=== PATIENT | female | born 2000 | race Caucasian/White ===

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

== ENCOUNTER 2022-08-28 22:22 | Emergency (ER) | payer OTHER, SELFPAY ==
[2022-08-28 22:24] VITALS: BP 155/96; PULSE 130; RESP 18; TEMP 38.8; O2SAT 98; BMI 27.3
--- NOTE | 2022-08-28 22:50 | EDS_ITS ---
HPI History of Present Illness Chief Complaint: Fever Narrative Narrative: Patient is a 22-year-old female with history of hypothyroidism and bipolar disorder. She states that over the last 2 days she has had a fever that has been slowly increasing from roughly 100.5 max temperature of 104 at home. She states that there has been chills and slight chest tightness associated with this. Otherwise she denies any nausea vomiting diarrhea or dysuria. She reports slight cough. She denies any sore throat or headache. Patient denies any known sick contacts but with the persistent fever is concern for an infectious process and therefore comes in for evaluation [facility] Medical History Anxiety Bipolar disorder Depression Hypothyroidism Home Medications lithium carbonate 600 mg capsule 1,200 mg PO DAILY 04/08/21 [History Last Taken Unknown] Allergy/AdvReac Type Severity Reaction Status Date / Time No Known Allergies Allergy Verified 08/28/22 22:26 Social History Smoking Status: Never smoker ROS ROS ED Constitutional Constitutional ED: Reports chills and fever(s) ENT ENT ED: Denies sore throat Cardiovascular Cardiovascular: Denies chest pain Respiratory/Chest Respiratory/Chest: Reports cough; Denies dyspnea Gastrointestinal Gastrointestinal: Denies abdominal pain, diarrhea, nausea or vomiting Genitourinary Genitourinary ED: Denies dysuria Musculoskeletal Musculoskeletal: Reports myalgias Integumentary Denies rash Neurologic Neurologic: Denies headache(s) Psychiatric Psychiatric: Reports depression Hematologic/Lymphatic Hematologic/Lymphatic: Denies easy bleeding or easy bruising EXAM Physical Exam Const Vital Signs: 08/28/22 22:24 Temperature 101.8 F H Temperature Source Oral Pulse Rate 130 H Respiratory Rate 18 Blood Pressure 155/96 H Blood Pressure Mean 115 Pulse Ox 98 Oxygen Delivery Method Room Air Positive well nourished and well developed General Appearance ED: well developed HEENT Reports moist mucous membranes Eyes PERRL and EOMs intact bilaterally Neck supple Neck Narrative: Positive anterior cervical of adenopathy noted Resp normal respiratory effort Resp Narrative: Faint expiratory wheeze in the bilateral lower lobes without nasal flaring retractions tachypnea or accessory muscle use Cardio regular rhythm Rate: tachycardic GI normal to inspection, nondistended, normoactive bowel sounds, non-tender, non- distended and no masses GI Narrative: No voluntary guarding or rigidity no pulsatile mass. Negative heel strike psoas and obturator signs. Auscultation: normoactive bowel sounds Palpation: soft Extremity normal to inspection Neuro oriented x3 and CN's II-XII intact bilaterally Sensorium / Orientation: alert Psych Psych Narrative: Patient has a flat affect Skin no rashes or lesions noted MDM MDM MDM Narrative Medical decision making narrative: Patient presented to the ER febrile and tachycardic consistent with a fever. Her reported temperature up to 104 at home is concerning for viral infection such as influenza or COVID so a rapid viral swab was obtained. Chest x-ray was also ordered because of mild cough and urine because of her recent diagnosis of UTI. The patient's viral swabs are. Her chest x-ray revealed no acute infiltrate. Urine showed bacteria but this would be treated as asymptomatic bacturia as patient denies any frequency urgency or dysuria. Upon reevaluation patient's temperature has improved and she also reports improvement of symptoms. On reevaluation her abdomen is also soft and nontender which is improved from the initial evaluation. Therefore at this time I feel that her symptoms are most likely related to viral upper respiratory tract infection instead of nontreated UTI or pneumonia or abdominal pathology such as colitis or diver ticulitis or appendicitis and patient can be discharged home at this time Lab Data Attestation: I reviewed the patient's lab results. Labs: Laboratory Results - last 24 hr 08/29/22 00:15 Urine Color Yellow Urine Clarity Clear Urine pH 7.0 Ur Specific [place] 1.005 Urine Protein Negative Urine Glucose (UA) Normal Urine Ketones 5 H Urine Occult Blood 25 H Urine Nitrite Negative Urine Bilirubin Negative Urine Urobilinogen Normal Ur Leukocyte Esterase Negative Urine RBC 0-5 SEEN Urine WBC 0 SEEN Ur Squamous Epith Cells 0-5 SEEN Urine Bacteria 2+ Urine Mucus 0 SEEN Urine Test Negative Radiography Diagnostic Testing: Clinical Impression(s) from Imaging Studies Chest X-Ray 08/28/22 23:10 IMPRESSION: No radiographic evidence of acute cardiopulmonary disease. Electronically Signed: Stanton العلي MD at 23:32 EST , 2 view chest x-ray as interpreted by the emergency medicine physician reveals no acute infiltrate pneumothorax or pleural effusion Discharge Plan Triage Chief Complaint: Fever ED Provider: Morteza White Dx/Rx/DC Orders Clinical Impression: Acute viral syndrome, Pyrexia Prescriptions: No Action lithium carbonate 600 mg Capsule 1,200 mg PO DAILY Primary Care Provider: Care Physician,No Primary Referrals: Maritza Raza, [Med Staff - Employee'S Representative] - Care Physician,No Primary [Primary Care Provider] - Activity Restrictions/Additional Instructions: Please continue take Tylenol to control your fever which your work-up today woul d indicate is from a viral upper respiratory tract infection. Fever from this will typically last 3 to 7 days. If you have any further concerns or worsening of symptoms please return to ER for repeat evaluation Disposition Disposition: Home, Self Care
--- NOTE | 2022-08-28 23:10 | RAD_ITS ---
INDICATION: cough EXAMINATION/TECHNIQUE: X-RAY - XR Chest 2 Views COMPARISON: None. FINDINGS: LINES/DEVICES: None. LUNGS: No pulmonary edema or focal airspace consolidation. No sizable pleural effusion. No pneumothorax detected. MEDIASTINUM AND CARDIOVASCULAR STRUCTURES: Heart size within normal limits. Mediastinal contours unremarkable. BONES AND SOFT TISSUES: No acute findings. RAD/Chest PA and Lateral IMPRESSION: No radiographic evidence of acute cardiopulmonary disease. Electronically Signed: Stanton العلي MD at 23:32 EST ,
[2022-08-29 00:22] LABS: Mucous, Urine 0 SEEN /hpf (<or=2+); White Blood Cells 0 SEEN /hpf (0-5)
[2022-08-29 00:23] VITALS: RESP 16
[2022-08-29 00:26] LABS: Color, Urine Yellow (Yellow); Glucose, Dipstick Normal (Normal); Ketone-Dipstick 5 mg/dl (Negative); Leukocyte Esterase-Dipstick Negative /ul (Negative); Nitrite-Dipstick Negative (Negative); Occult Blood-Urine 25 /ul (Negative); Protein-Dipstick Negative (Negative); Specific Gravity, Urine 1.005 (1.002-1.030); Urine Bilirubin Dipstick Negative (Negative); Urine Clarity Clear (Clear); Urine Urobilinogen Normal (Normal)
[2022-08-29 00:30] LABS: Internal QC Validated? YES +Cl - CLEAR BKGD; Pregnancy, Urine Negative Negative
[2022-08-29 00:33] LABS: Bacteria 2+ /hpf (None Seen); Red Blood Cells-Urine 0-5 SEEN /hpf (0-5); Squamous Epithelial Cells - UA 0-5 SEEN /hpf (5-10)
[2022-08-29 01:05] VITALS: BP 155/96; PULSE 128; RESP 18; O2SAT 98
== END 2022-08-29 01:30 | disposition home or self-care (01) ==
PROVIDERS: Emergency Provider Emergency Medicine; Visit Provider Emergency Medicine
DX: B34.9 Viral infection, unspecified (principal); R50.9 Fever, unspecified
CPT/HCPCS: 71046; 81001; 81025; 87086; 87088; 87428; 99282

== ENCOUNTER 2022-08-30 20:36 | Emergency (ER) | payer OTHER, SELFPAY ==
[2022-08-30 20:38] VITALS: BP 117/78; PULSE 135; RESP 18; TEMP 37.8; O2SAT 100; BMI 29.9
[2022-08-30 20:40] VITALS: BP 117/78; PULSE 135; RESP 16; TEMP 37.8; O2SAT 100
[2022-08-30] MEDS: 0.9% Normal Saline 1,000 ML 1000 ML IV (21:05)
[2022-08-30] MEDS: Ondansetron 4 MG/2 ML Vial IV (21:06)
[2022-08-30 21:14] LABS: Absolute Lymphocyte Count 0.65 X10^3/uL (0.83-4.51); Absolute Neutrophil Count 2.5 X10^3/uL (2.0-7.7); Basophil# 0.01 X10^3/uL; Basophil% 0.3 % (0-1); Eosinophil# 0.14 X10^3/uL; Hematocrit 35.9 % (37-47); Lymphocyte # 0.65 X10^3/ul (0.83-4.51); Lymphocyte % 18.7 % (19-41); Mean Corp Hgb Conc 33.4 g/dL (32-36); Mean Corpuscular Hgb 28.4 pg (27.0-32.0); Mean Corpuscular Volume 84.9 fL (81-99); Mean Platelet Vol. 10.5 fl (6.2-12.0); Monocyte# 0.19 X10^3/uL; Monocyte% 5.5 % (0-10); NRBC Flagged by Analyzer 0 % (0-5); Neutrophil # 2.47 X10^3/uL (2.7-7.7); Neutrophil % 71.2 % (47-70); Platelet Count 115 K/mm3 (150-450); RBC Distribution Width CV 12.7 % (11.6-14.6); Red Blood Count 4.23 M/mm3 (4.2-5.4); White Blood Count 3.5 K/mm3 (4.4-11.0)
--- NOTE | 2022-08-30 21:17 | EX.ED.DYSGE1 ---
HPI History of Present Illness Chief Complaint: Fever Informant: patient Onset/Context/Timing Onset: Days (4 days) Context: Gradual Onset Current Severity: Mild Maximum Severity: Moderate Narrative Narrative: Patient present secondary to continued fevers at home and new development of a rash. She was seen in the ER 2 nights ago and had a negative COVID and influenza test. Her urinalysis revealed no acute infection. Chest x-ray was clear. Is felt she likely had viral syndrome. Patient states she woke the next morning with a dry red rash to primarily the upper extremities and her face. She also developed a sore throat. She continues to have intermittent fevers up to 103-104. She states today she has had nausea and diarrhea. [facility] Medical History Anxiety Bipolar disorder Depression Hypothyroidism Home Medications lithium carbonate 600 mg capsule 1,200 mg PO DAILY 04/08/21 [History Last Taken Unknown] ondansetron 4 mg disintegrating tablet 4 mg PO Q8H PRN nausea and vomiting #10 tabs 08/30/22 [Rx Last Taken Unknown] Allergy/AdvReac Type Severity Reaction Status Date / Time No Known Allergies Allergy Verified 08/28/22 22:26 Social History Smoking Status: Never smoker ROS ROS ED Constitutional Constitutional ED: Reports fever(s) Eyes Eyes: Denies change in vision or discharge from eye(s) ENT ENT ED: Reports sore throat; Denies discharge from eye(s) or rhinorrhea Cardiovascular Cardiovascular: Denies chest pain or palpitations Respiratory/Chest Respiratory/Chest: Reports cough; Denies dyspnea Gastrointestinal Gastrointestinal: Reports diarrhea and nausea; Denies abdominal pain or vomiting Genitourinary Genitourinary ED: Denies dysuria Musculoskeletal Musculoskeletal: Denies back pain or extremity pain Integumentary Reports rash; Denies Abrasions Neurologic Neurologic: Denies headache(s) or weakness Psychiatric Psychiatric: Denies anxiety or depression Allergic/Immunologic Allergic/Immunologic ED: Denies lip swelling or urticaria EXAM Physical Exam Const Vital Signs: 08/30/22 20:38 08/30/22 20:40 Temperature 100.0 F H 100.0 F H Temperature Source Temporal Temporal Pulse Rate 135 H 135 H Respiratory Rate 18 16 Blood Pressure 117/78 117/78 Blood Pressure Mean 91 91 Pulse Ox 100 100 Oxygen Delivery Method Room Air Room Air Positive well nourished and well developed General Appearance ED: well developed HEENT Reports normocephalic and head/scalp atraumatic HEENT Narrative: 3+ tonsils. Uvula midline. Patient tolerating secretions well and has a strong voice. Eyes PERRL and EOMs intact bilaterally Neck supple Chest Wall inspection of chest normal and palpation of chest normal Resp normal respiratory effort and clear to auscultation bilaterally Cardio regular rate and regular rhythm GI normal to inspection, nondistended, normoactive bowel sounds Palpation: soft Neuro oriented x3 and no sensory deficits noted Sensorium / Orientation: alert Motor Exam: strength 5/5 throughout Psych mental status grossly normal Skin Skin Narrative: Dry red rash noted to the upper extremities and face. Findings are concerning for scarlet fever. MDM MDM MDM Narrative Medical decision making narrative: IV line established and patient given IV fluids. Swab for COVID and influenza sent along with strep. Lab work and urinalysis ordered. Lab Data Attestation: I reviewed the patient's lab results. Labs: Laboratory Results - last 24 hr 08/30/22 08/30/22 08/30/22 21:00 21:00 21:00 WBC 3.5 L RBC 4.23 Hgb 12.0 Hct 35.9 L MCV 84.9 MCH 28.4 MCHC 33.4 RDW Std Deviation 39.0 RDW Coeff of Faraz 12.7 Plt Count 115 L MPV 10.5 Immature Gran % (Auto) 0.300 Neut % (Auto) 71.2 H Lymph % (Auto) 18.7 L [place] % (Auto) 5.5 Eos % (Auto) 4.0 Baso % (Auto) 0.3 Absolute Neuts (auto) 2.5 Absolute Lymphs (auto) 0.65 L Nucleated RBC % 0 Sodium 132 L Potassium 4.0 Chloride 101 Carbon Dioxide 23.0 Anion Gap 8 BUN 10 Creatinine 0.98 Estim Creat Clear Calc 92.37 Est GFR (MDRD) Af Amer 92 Est GFR (MDRD) Non-Af 76 BUN/Creatinine Ratio 10.2 Glucose 106 Calcium 8.7 Serum , Qual NEGATIVE Urine Color Urine Clarity Urine pH Ur Specific [place] Urine Protein Urine Glucose (UA) Urine Ketones Urine Occult Blood Urine Nitrite Urine Bilirubin Urine Urobilinogen Ur Leukocyte Esterase Urine RBC Urine WBC Ur Squamous Epith Cells Urine Bacteria Urine Mucus 08/30/22 21:50 WBC RBC Hgb Hct MCV MCH MCHC RDW Std Deviation RDW Coeff of Faraz Plt Count MPV Immature Gran % (Auto) Neut % (Auto) Lymph % (Auto) [place] % (Auto) Eos % (Auto) Baso % (Auto) Absolute Neuts (auto) Absolute Lymphs (auto) Nucleated RBC % Sodium Potassium Chloride Carbon Dioxide Anion Gap BUN Creatinine Estim Creat Clear Calc Est GFR (MDRD) Af Amer Est GFR (MDRD) Non-Af BUN/Creatinine Ratio Glucose Calcium Serum , Qual Urine Color Yellow Urine Clarity Clear Urine pH 6.5 Ur Specific [place] 1.015 Urine Protein 30 H Urine Glucose (UA) Normal Urine Ketones 50 H Urine Occult Blood 10 H Urine Nitrite Negative Urine Bilirubin Negative Urine Urobilinogen Normal Ur Leukocyte Esterase Negative Urine RBC 0 SEEN Urine WBC 0 SEEN Ur Squamous Epith Cells 0-5 SEEN Urine Bacteria 1+ Urine Mucus 0 SEEN Treatment and Re-Evaluation Narrative: X-ray from 2 days ago is reviewed and reveals no evidence of infection/infiltrate. CBC reveals low white count at 3.5 with 71% neutrophils and 18% lymphocytes. Chemistry studies reveal a sodium of 132. BUN and creatinine are normal. Urgency test is negative. Urinalysis does reveal 50 ketones with 1+ bacteria and 0-5 epithelial cells. No white blood cells are noted and nitrites are negative. Swabs for COVID, influenza, and strep are all negative. On repeat exam patient initially had improved heart rate down to 102 with a temperature of 99.7. At this time repeat temperature is 100.3. She just received a dose of Tylenol. She complains of a burning sensation to her arms where her rash is located. She be given a dose of Benadryl and will continue supportive care at home. Patient's rash is consistent with a viral exanthem. She was advised that the strep test will be sent for culture and if any abnormal findings are noted she would be contacted. She voices understanding and agreement. Discharge Plan Triage Chief Complaint: Fever ED Provider: Nannette Reyes Dx/Rx/DC Orders Clinical Impression: Viral exanthem, Acute viral syndrome Instructions: ED Viral Rash, Exanthem (Child), ED Viral Syndrome (Adult) Prescriptions: New ondansetron 4 mg tablet,disintegrating 4 mg PO Q8H PRN (Reason: nausea and vomiting) Qty: 10 0RF No Action lithium carbonate 600 mg Capsule 1,200 mg PO DAILY Primary Care Provider: Care Physician,No Primary Referrals: Priscilla Rodriguez MD [Med Staff - Logistic Specialist] - 1 Week Care Physician,No Primary [Primary Care Provider] - Disposition Disposition: Home, Self Care
[2022-08-30 21:27] LABS: Anion Gap 8 (5-15); BUN 10 mg/dL (7-18); BUN/Creat Ratio 10.2 RATIO (10-20); Calcium,Total 8.7 mg/dL (8.5-10.1); Chloride 101 mmol/L (98-107); Creatinine, Serum 0.98 mg/dL (0.55-1.02); EST Glomerular Filtration Rate 76 mL/min (>60); Est Glom Filt Rate - Afr Amer 92 mL/min (>60); Estimated Creatinine Clearance 92.37 ml/min; Glucose 106 mg/dL (74-106); Sodium Level 132 mmol/L (136-145)
[2022-08-30 21:36] LABS: Internal QC Validated? YES +Cl - CLEAR BKGD; Pregnancy, Serum, hCG Quali. NEGATIVE Negative
[2022-08-30] MEDS: 0.9% Normal Saline 1,000 ML 150 ML IV (21:49)
[2022-08-30 22:12] LABS: Mucous, Urine 0 SEEN /hpf (<or=2+); Red Blood Cells-Urine 0 SEEN /hpf (0-5); White Blood Cells 0 SEEN /hpf (0-5)
[2022-08-30 22:13] LABS: Color, Urine Yellow (Yellow); Glucose, Dipstick Normal (Normal); Ketone-Dipstick 50 mg/dl (Negative); Leukocyte Esterase-Dipstick Negative /ul (Negative); Nitrite-Dipstick Negative (Negative); Occult Blood-Urine 10 /ul (Negative); Protein-Dipstick 30 mg/dl (Negative); Specific Gravity, Urine 1.015 (1.002-1.030); Urine Bilirubin Dipstick Negative (Negative); Urine Clarity Clear (Clear); Urine Urobilinogen Normal (Normal); Urine pH 6.5 (5.0 - 8.0)
[2022-08-30] MEDS: Acetaminophen 500 MG Tablet 1000 MG PO (22:25)
[2022-08-30 23:00] LABS: Bacteria 1+ /hpf (None Seen); Squamous Epithelial Cells - UA 0-5 SEEN /hpf (5-10)
[2022-08-30] MEDS: DiphenhydrAMINE 50 MG/ML Syringe 25 MG IV (23:47)
== END 2022-08-30 23:51 | disposition home or self-care (01) ==
PROVIDERS: Emergency Provider Emergency Medicine; Visit Provider Emergency Medicine
DX: B34.9 Viral infection, unspecified (principal); B09 Unspecified viral infection characterized by skin and mucous membrane lesions; Z20.822 Contact with and (suspected) exposure to COVID-19; R19.7 Diarrhea, unspecified; R11.0 Nausea
CPT/HCPCS: 80048; 81001; 84703; 85025; 87428; 87880; 96361; 96374; 96375; 99284; J7030; A4216; J2405

== ENCOUNTER → 2022-12-13 | Outpatient (CLI) | payer OTHER, SELFPAY ==
[2022-12-13 17:14] LABS: ALB/GLOB Ratio 1.2 RATIO (0.9-2.4); AST(SGOT) 14 U/L (15-37); Alanine Aminotransfer ALT/SGPT 16 U/L (13-56); Albumin, Serum 4.1 g/dL (3.2-5.0); Alkaline Phosphatase 163 U/L (45-117); Anion Gap 7 (5-15); BUN 9 mg/dL (7-18); BUN/Creat Ratio 11.7 RATIO (10-20); Bilirubin, Direct 0.14 mg/dL (0.00-0.30); Calcium,Total 9.6 mg/dL (8.5-10.1); Chloride 106 mmol/L (98-107); Creatinine, Serum 0.77 mg/dL (0.55-1.02); EST Glomerular Filtration Rate 101 mL/min (>60); Est Glom Filt Rate - Afr Amer 123 mL/min (>60); Globulin 3.5 g/dL (2.2-4.2); Glucose 98 mg/dL (74-106); Potassium 3.8 mmol/L (3.5-5.1); Protein, Total 7.6 g/dL (6.4-8.2); Sodium Level 141 mmol/L (136-145)
[2022-12-13 17:26] LABS: Valproic Acid (Depakene) Level 21 ug/mL (50-100)
== END | disposition home or self-care (01) ==
LOC: LAB 15:39
DX: F31.32 Bipolar disorder, current episode depressed, moderate (principal)
CPT/HCPCS: 36415; 80053; 80164; 80178; 82248

== ENCOUNTER 2024-04-18 16:25 | Emergency (ER) | payer BC, SELFPAY ==
[2024-04-18 16:25] VITALS: BP 171/125; PULSE 82; RESP 16; TEMP 36.6; O2SAT 100; BMI 23.4
[2024-04-18 17:10] VITALS: O2SAT 99
--- NOTE | 2024-04-18 17:10 | EKG12_ITS ---
Test Reason : CP Blood Pressure : / mmHG Vent. Rate : 072 BPM Atrial Rate : 072 BPM P-R Int : 172 ms QRS Dur : 092 ms QT Int : 394 ms P-R-T Axes : 027 050 039 degrees QTc Int : 431 ms Normal sinus rhythm Normal ECG Confirmed by JOHNNY NATHAN MD ([id number]), advertising editor BALDOMERO MOORE ([id number]) on 04/19/2024 2:48:33 PM Referred By: DIMITRI/JAQUELIN Confirmed By:JOHNNY NATHAN MD
--- NOTE | 2024-04-18 17:11 | ED.VIS.CHEST ---
HPI History of Present Illness Chief Complaint: Chest Pain Informant: patient Onset/Context/Timing Onset: Days Activity at onset: gradual Timing: Intermittent Quality: Positive for Aching Location: Substernal and Left Parasternal Current Severity: Mild Maximum Severity: Mild Worsened By: Movement of Arm and Movement of Torso; Not Worsened By Exertion, Eating, Palpation, Breathing or Coughing Relieved By: Nothing Associated Symptoms: Negative for Nausea, Vomiting, Diaphoresis, Dyspnea, Cough, Fever, Lightheadedness, Acid Reflux or Palpitations Narrative Narrative: 23-year-old female history of PTSD and anxiety. [employer]. Having chest pain for about 2 weeks. Intermittent. Midsternal and left parasternal. Said it is an aching pain. Denies any nausea, vomiting or diarrhea. No fever chills or cough. No hemoptysis. Is not pleuritic. No history of DVT or PE. She traveled in January but has not traveled in February or March. She has not taken her control pills for more than 3 months. She has no cardiac history. Denies any recent illness. Worse with movement of her left arm. No leg pain or swelling. No IV drug abuse. Prior Similar Symptoms: No Recent Illness/Hospitalization: No CVD Risk Factors: Negative for Hypertension, Diabetes, Hypercholesterolemia, Family History 1' </=55 or Smoking PE Risk Factors: Negative for Recent Travel/Surgery, Recent Immobilization, Prior DVT or PE, Cancer or OCP + Smoking + >/=35 TAD Risk Factors: Negative for Marfan's Syndrome [facility] Medical History Hypothyroidism Depression Anxiety Bipolar disorder Home Medications ?Medication ?Instructions ?Recorded ?Last Taken ?Type lithium carbonate 150 mg capsule 150 mg PO QHS 04/18/24 Unknown History lurasidone 40 mg tablet 40 mg PO DAILY 04/18/24 Unknown History norethindrone acetate 1 mg-ethinyl 1 tab PO DAILY 04/18/24 Unknown History estradiol 20 mcg tablet (Junel) prazosin 1 mg capsule 1 - 2 mg PO QHS 04/18/24 Unknown History propranolol 10 mg tablet 10 mg PO DAILY 04/18/24 Unknown History Allergy/AdvReac Type Severity Reaction Status Date / Time No Known Allergies Allergy Verified 04/18/24 16:29 Social History Smoking Status: Never smoker ROS ROS ED ROS Narrative Atypical nonexertional chest pain. Constitutional Constitutional ED: Denies chills or fever(s) Eyes Eyes: Reports none ENT ENT ED: Denies ear pain Cardiovascular Cardiovascular: Reports as per HPI and chest pain; Denies palpitations or racing heartbeat Respiratory/Chest Respiratory/Chest: Denies cough, dyspnea or dyspnea on exertion Gastrointestinal Gastrointestinal: Denies abdominal pain Genitourinary Genitourinary ED: Denies dysuria Musculoskeletal Musculoskeletal: Denies arthralgias Integumentary Denies abscess Neurologic Neurologic: Denies headache(s) Psychiatric Psychiatric: Reports anxiety Endocrine Endocrinology: Denies cold intolerance Hematologic/Lymphatic Hematologic/Lymphatic: Denies easy bleeding Allergic/Immunologic Allergic/Immunologic ED: Denies mouth swelling EXAM Physical Exam Narrative Exam Narrative: Well-appearing 23-year-old female. Vital signs stable afebrile. Blood pressure 171/125 it is improved when is in the room is like 160/100. States she gets anxious. No history of hypertension. She is in no distress. H EENT exam unremarkable. Neck nontender JVD. Lungs clear to auscultation bilateral. Heart regular rate rhythm no murmur. Rate about 80. Chest wall and ribs nontender. Abdomen soft nontender. Moving all 4 extremities. Equal symmetrical radial pulses. 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 Dorsi plantarflexion intact. Calves are nontender without edema or cords. She is awake and alert. No focal motor deficits. Benign exam. Const Vital Signs: 04/18/24 16:25 04/18/24 17:10 04/18/24 17:18 Temperature 97.8 F Temperature Source Temporal Pulse Rate 82 Respiratory Rate 16 Respiratory Effort Normal Non-Labored Blood Pressure 171/125 H Blood Pressure Mean 140 Pulse Ox 100 99 Oxygen Delivery Method Room Air Room Air Positive well nourished and well developed; Negative for obese, cachectic, contractures or unkempt General Appearance ED: well developed; Negative for unkempt, cachectic, contractures or pallor Nutritional Appearance: Negative for cachectic or obese HEENT Reports moist mucous membranes normocephalic and atraumatic Eyes PERRL and EOMs intact bilaterally General Eye ED: Negative for pale conjunctiva or scleral icterus Neck no lymphadenopathy, supple and no JVD Chest Wall inspection of chest normal and palpation of chest normal Chest: Negative for tenderness Resp normal respiratory effort and clear to auscultation bilaterally Effort and Inspection: Negative for respiratory distress Auscultation: Negative for rales, rhonchi, wheezes or diminished lung sounds Cardio regular rate, regular rhythm, S1 normal heart sound, S2 normal heart sound and no murmurs Rate: Negative for bradycardia or tachycardic Rhythm: Negative for abnormal rhythm Peripheral Pulses: pulses 2+ throughout GI normal to inspection, nondistended, normoactive bowel sounds, soft to palpation, non-tender, non-distended and no masses Back/Spine no CVA tenderness and no thoracic nor lumbar tenderness General Back: Negative for CVA tenderness Cervical Spine: Negative for cervical spine tenderness Extremity normal to inspection General Extremety ED: Negative for edema, pulses abnormal or tenderness General Extremity: Negative for edema or pulses abnormal Neuro oriented x3 and CN's II-XII intact bilaterally Sensorium / Orientation: awake, alert, oriented to person, oriented to place and oriented to time; Negative for confused or lethargic Motor Exam: strength 5/5 throughout Psych mental status grossly normal Appearance: Negative for unkempt Attitude: No agitated Mood & Affect: Negative for depressed, anxious or tearful Skin no rashes or lesions noted and no wounds General Skin Exam: Negative for jaundice or pallor Rashes: No rashes noted Trauma: Negative for abrasion, laceration or puncture MDM MDM MDM Narrative Medical decision making narrative: Patient with atypical, nonexertional, nonreproducible chest pain. Benign exam. Undergo cardiac workup. No associated back pain. Repeat exam patient doing well at 6:27 PM. She and I went over all the test results. She has no risk factors for DVT or PE. Clinically does not sound like a PE. She has no cardiac risk factors. Her workup was completely negative. She has had this for 2 weeks. It may be secondary anxiety. She will be discharged to home with outpatient follow-up. History & Record Review Discussion w/independent historian: Patient Lab Data Attestation: I reviewed the patient's lab results. Lab results narrative: CBC normal. White count 8. H&H 14 and 42. Platelets 283. Electrolytes normal. Gap 8. Normal BUN and creatinine. Glucose 93. Troponin 3. Labs: Laboratory Results - last 24 hr 04/18/24 17:13 WBC 8.8 RBC 4.93 Hgb 14.2 Hct 42.3 MCV 85.8 MCH 28.8 MCHC 33.6 RDW Std Deviation 36.9 RDW Coeff of Faraz 11.8 Plt Count 283 MPV 9.3 Immature Gran % (Auto) 0.200 Neut % (Auto) 70.1 H Lymph % (Auto) 20.3 Piatt % (Auto) 6.3 Eos % (Auto) 2.2 Baso % (Auto) 0.9 Absolute Neuts (auto) 6.2 Absolute Lymphs (auto) 1.79 Nucleated RBC % 0 Sodium 140 Potassium 3.7 Chloride 110 H Carbon Dioxide 22.0 Anion Gap 8 BUN 12 Creatinine 0.79 Estim Creat Clear Calc 113.63 Est GFR (MDRD) Af Amer 118 Est GFR (MDRD) Non-Af 97 BUN/Creatinine Ratio 15.2 Glucose 93 Calcium 9.5 Troponin I High Sens 3 Radiography Chest X-Ray - ED: 2 View, Read by ED Physician, Read by Radiologist, Normal, Heart, Lungs, Mediastinum, Bony Structures and No Acute Disease Diagnostic Testing: Clinical Impression(s) from Imaging Studies Chest X-Ray 04/18/24 17:18 IMPRESSION: No radiographic evidence of acute cardiopulmonary disease. Electronically Signed: Tanner Miller MD at 17:31 EDT Reading Location ID and State: [facility] / [place] Tel , Service support , Chest x-ray, 2 views, AP and lateral, interpreted by by myself and radiologist shows no acute abnormality. Normal cardiac silhouette. Normal lung bourne. Normal mediastinum. No infiltrate or effusion. Rhythm Strip Rhythm Strip: Sinus Rhythm Rate: 72 Ectopy: None EKG Initial EKG: Attestation: I personally reviewed and interpreted this EKG as follows: Interpretation: Sinus Rhythm and No Acute Injury Pattern Comments: Normal sinus rhythm rate 72 no acute signs of VA or ischemia. No [id number]. Discharge Plan Triage Chief Complaint: Chest Pain ED Provider: Felix Sarabia Dx/Rx/DC Orders Clinical Impression: Chest pain, History of post traumatic stress disorder Instructions: ED Chest Pain, Uncertain Cause Prescriptions: No Action prazosin 1 mg capsule 1 - 2 mg PO QHS lithium carbonate 150 mg capsule 150 mg PO QHS propranolol 10 mg tablet 10 mg PO DAILY norethindrone ac-eth estradiol [08/30 (21)] 1-20 mg-mcg tablet 1 tab PO DAILY lurasidone 40 mg tablet 40 mg PO DAILY Primary Care Provider: Care Physician,No Primary Referrals: Vick Ca MD [Med Staff - Pole Tester] - As Needed Care Physician,No Primary [Primary Care Provider] - Activity Restrictions/Additional Instructions: Your test and exam are normal. This may or may not be second anxiety. There is no signs of being related to your heart. Follow-up if not improving. Return if feeling a lot worse. Print Language: Prydeinig Disposition Disposition: Home, Self Care
--- NOTE | 2024-04-18 17:18 | RAD_ITS ---
INDICATION: CHEST PAIN EXAMINATION/TECHNIQUE: X-RAY - XR Chest 2 Views COMPARISON: 08/28/2022 FINDINGS: LINES/DEVICES: None. LUNGS: No consolidation, edema or effusion. No pneumothorax. MEDIASTINUM AND CARDIOVASCULAR STRUCTURES: Cardiac silhouette not enlarged. Central airways and mediastinal contour are unremarkable. BONES AND SOFT TISSUES: Unremarkable. RAD/Chest PA and Lateral IMPRESSION: No radiographic evidence of acute cardiopulmonary disease. Electronically Signed: Tanner Miller MD at 17:31 EDT ,
[2024-04-18 17:19] LABS: Absolute Lymphocyte Count 1.79 X10^3/uL (0.83-4.51); Absolute Neutrophil Count 6.2 X10^3/uL (2.0-7.7); Basophil# 0.08 X10^3/uL; Basophil% 0.9 % (0-1); Eosinophil# 0.19 X10^3/uL; Eosinophils% 2.2 % (0-5); Hematocrit 42.3 % (37-47); Hemoglobin 14.2 g/dL (12.0-15.0); Lymphocyte # 1.79 X10^3/ul (0.83-4.51); Lymphocyte % 20.3 % (19-41); Mean Corp Hgb Conc 33.6 g/dL (32-36); Mean Corpuscular Hgb 28.8 pg (27.0-32.0); Mean Corpuscular Volume 85.8 fL (81-99); Mean Platelet Vol. 9.3 fl (6.2-12.0); Monocyte# 0.56 X10^3/uL; Monocyte% 6.3 % (0-10); NRBC Flagged by Analyzer 0 % (0-5); Neutrophil # 6.18 X10^3/uL (2.7-7.7); Neutrophil % 70.1 % (47-70); Platelet Count 283 K/mm3 (150-450); RBC Distribution Width CV 11.8 % (11.6-14.6); RBC Distribution Width SD 36.9 fl (35.1-43.9); Red Blood Count 4.93 M/mm3 (4.2-5.4); White Blood Count 8.8 K/mm3 (4.4-11.0)
[2024-04-18 17:46] LABS: Anion Gap 8 (5-15); BUN 12 mg/dL (7-18); BUN/Creat Ratio 15.2 RATIO (10-20); Calcium,Total 9.5 mg/dL (8.5-10.1); Chloride 110 mmol/L (98-107); Creatinine, Serum 0.79 mg/dL (0.55-1.02); EST Glomerular Filtration Rate 97 mL/min (>60); Est Glom Filt Rate - Afr Amer 118 mL/min (>60); Estimated Creatinine Clearance 113.63 ml/min; Glucose 93 mg/dL (74-106); Potassium 3.7 mmol/L (3.5-5.1); Sodium Level 140 mmol/L (136-145); Troponin-I HS 3 pg/mL (3.0-54.0)
[2024-04-18 18:15] VITALS: BP 142/98; PULSE 75; RESP 17; O2SAT 100
[2024-04-18 18:36] VITALS: BP 142/98; PULSE 75; RESP 17; TEMP 36.4; O2SAT 100
== END 2024-04-18 18:43 | disposition home or self-care (01) ==
PROVIDERS: Emergency Provider Emergency Medicine; Visit Provider Emergency Medicine
DX: R07.9 Chest pain, unspecified (principal); F31.9 Bipolar disorder, unspecified; F41.9 Anxiety disorder, unspecified; F43.10 Post-traumatic stress disorder, unspecified; Z79.899 Other long term (current) drug therapy; Z79.3 Long term (current) use of hormonal contraceptives
CPT/HCPCS: 71046; 80048; 84484; 85025; 93005; 99284; A4216